=== PATIENT | male | born 1950 | race Two or more races ===

== ENCOUNTER 2016-06-06 10:07 | Emergency (ER) | payer BC ==
[2016-06-06 10:24] VITALS: BP 129/82
--- NOTE | 2016-06-06 10:56 | UC ---
Throat Pain/Nasal Shaheed HPI - HPI Summary HPI Summary: 66 yo male with sore throat x 5-6 days no f/c no myalgias much of his class ill - History of Current Complaint Chief Complaint: UCRespiratory Stated Complaint: SORE THROAT Time Seen by Provider: 06/06/16 10:50 Hx Obtained From: Patient Onset/Duration: Gradual Onset, Lasting Days Severity: Moderate Pain Intensity: 4 Pain Scale Used: 0-10 Numeric Cough: None Associated Signs & Symptoms: Positive: Negative - Allergies/Home Medications Allergies/Adverse Reactions: Allergies Allergy/AdvReac Type Severity Reaction Status Date / Time No Known Allergies Allergy Verified 06/06/16 10:18 Home Medications: Home Medications Amlodipine Besylate [Norvasc-] 5 mg PO DAILY 06/06/16 [History Confirmed ] Aspirin TAB* 325 mg PO PRN 06/06/16 [History] Atorvastatin* [Lipitor*] 10 mg PO 1700 06/06/16 [History Confirmed 06/06/16] Cholecalciferol TAB* [Vitamin D TAB*] 400 unit PO DAILY 06/06/16 [History Confirmed 06/06/16] PMH/Surg Hx/FS Hx/Imm Hx Previously Healthy: Yes Cardiovascular History Of: Reports: Hypertension - Surgical History Surgical History: None - Family History Known Family History: Positive: Hypertension - Social History Alcohol Use: Daily Alcohol Amount: 1`-2 beers a night Substance Use Type: None Smoking Status (MU): Never Smoked Tobacco Review of Systems Constitutional: Negative Skin: Negative Eyes: Negative ENT: Sore Throat Respiratory: Negative Cardiovascular: Negative Gastrointestinal: Negative Genitourinary: Negative Motor: Negative Neurovascular: Negative Musculoskeletal: Negative Neurological: Negative Psychological: Negative All Other Systems Reviewed And Are Negative: Yes Physical Exam Triage Information Reviewed: Yes Appearance: Well-Appearing, No Pain Distress, Well-Nourished Vital Signs: Initial Vital Signs Temp 98.4 F 06/06/16 10:11 Pulse 76 06/06/16 10:11 Resp 16 06/06/16 10:11 BP 129/82 06/06/16 10:11 Pulse Ox 100 06/06/16 10:11 Vital Signs Reviewed: Yes Eyes: Positive: Conjunctiva Clear ENT: Positive: Hearing grossly normal, Pharyngeal erythema. Negative: Nasal congestion, Nasal drainage, Tonsillar swelling, Tonsillar exudate, Trismus, Muffled/hoarse voice Neck: Positive: Supple, Nontender, Enlarged Nodes @ - L>R Respiratory: Positive: Lungs clear, Normal breath sounds, No respiratory distress, No accessory muscle use Cardiovascular: Positive: RRR, No Murmur Abdomen Description: Positive: Nontender, No Organomegaly, Soft Musculoskeletal: Positive: ROM Intact, No Edema Neurological Exam: Normal Neurological: Positive: Alert Psychological Exam: Normal Skin Exam: Normal Throat Pain/Nasal Course/Dx - Differential Dx/Diagnosis Provider Diagnoses: acute pharyngitis Discharge - Discharge Plan Condition: Stable Disposition: HOME Prescriptions: Amoxicillin (*) 875 mg PO BID #20 tab Patient Education Materials: Pharyngitis (ED) Referrals: Marco A Bonilla MD [Primary Care Provider] - 4 Days (if not better)
== END 2016-06-06 10:58 | disposition home or self-care (01) ==
LOC: UCCORT 10:07
DX: J02.9 Acute pharyngitis, unspecified (principal)
CPT/HCPCS: 99212; G0463